=== PATIENT | male | born 1950 | race African-American/Black ===

== ENCOUNTER 2021-01-03 09:13 | Inpatient (IN) | payer MEDICARE, MEDICAID ==
[2021-01-04 06:21] LABS: Band 5 % (5-11); Hemoglobin 13.2 g/dL (14.0-18.0); Lymphocytes 10 % (21-51); MDiff Complete? YES; Mean Corpuscular HGB CONC 31.5 g/dL (32.0-36.0); Mean Corpuscular Hemoglobin 31.2 pg (27.0-31.0); Mean Corpuscular Volume 98.8 fL (78.0-98.0); Mean Platelet Volume 6.5 fL (7.4-10.4); Monocytes 8 % (0-10); Neutrophil 71 % (42-75); Platelet Count 396 thou/uL (130-400); Platelet Morphology Comment Appears Adequate; RBC Distribution Width 12.6 % (11.5-14.5); RBC Morphology Normal; Reactive Lymphocytes 6 % (0-10); Red Blood Cell (RBC) Count 4.24 mill/uL (4.70-6.10); White Blood Cell (WBC) Count 12.3 thou/uL (4.8-10.8)
[2021-01-04 06:25] LABS: Anion Gap 15 mmol/L (10-20); BUN (Urea Nitrogen) 58 mg/dL (8.4-25.7); Calc. Creatinine Clearance 48 mL/min (70-130); Calcium 8.7 mg/dL (7.8-10.44); Carbon Dioxide 23 mmol/L (23-31); Chloride 105 mmol/L (98-107); Glucose 140 mg/dL (83-110); Potassium 4.8 mmol/L (3.5-5.1); Sodium 138 mmol/L (136-145)
[2021-01-04] MEDS: predniSONE 20 MG TAB PO SCH (08:35)
[2021-01-04] MEDS: Amlodipine 5 MG TAB PO SCH (08:35)
[2021-01-04] MEDS: Aspirin 81 mg Enteric Coated Tablet PO SCH (08:35)
[2021-01-04] MEDS ORDERED: Senokot S 8.6-50 MG TAB PO PRN ×2 (09:39)
[2021-01-04] MEDS ORDERED: Eucerin (Mineral Oil/Petrolatum,White) 30 gm Jar TOP PRN (09:39)
[2021-01-04] MEDS ORDERED: Ondansetron ODT 4 MG TAB PO PRN (09:39)
[2021-01-04] MEDS ORDERED: Acetaminophen 325 MG TAB PO PRN (09:39)
[2021-01-04] MEDS ORDERED: Loperamide HCl 2 MG CAP PO PRN (09:39)
[2021-01-04] MEDS ORDERED: Bisacodyl 10 MG SUPP PR PRN ×2 (09:39)
[2021-01-04] MEDS ORDERED: Cepastat Lozenges 1 LOZ PO PRN (09:39)
[2021-01-04] MEDS ORDERED: Sodium Chloride 0.65% Nasal 44 ML BOT EA NARE PRN (09:39)
[2021-01-04] MEDS ORDERED: cloNIDine 0.1 MG TAB PO PRN (09:39)
[2021-01-04] MEDS ORDERED: Calcium Carbonate 500 MG ChewTAB PO PRN (09:39)
[2021-01-04] MEDS ORDERED: Bisacodyl 5 MG TAB PO PRN (09:39)
[2021-01-04] MEDS ORDERED: Artificial Tear Sol 15 ML BOT EA EYE PRN (09:39)
[2021-01-04] MEDS ORDERED: diphenhydrAMINE 25 MG CAP PO PRN (09:39)
[2021-01-04] MEDS: Famotidine 20 MG TAB PO SCH (21:02)
[2021-01-05 06:00] LABS: Anion Gap 12 mmol/L (10-20); BUN (Urea Nitrogen) 45 mg/dL (8.4-25.7); Calc. Creatinine Clearance 58 mL/min (70-130); Calcium 8.8 mg/dL (7.8-10.44); Carbon Dioxide 24 mmol/L (23-31); Chloride 107 mmol/L (98-107); Glucose 107 mg/dL (83-110); Potassium 4.8 mmol/L (3.5-5.1); Sodium 138 mmol/L (136-145)
[2021-01-05 06:22] LABS: Band 6 % (5-11); Hemoglobin 11.8 g/dL (14.0-18.0); Lymphocytes 10 % (21-51); MDiff Complete? YES; Mean Corpuscular HGB CONC 31.2 g/dL (32.0-36.0); Mean Corpuscular Hemoglobin 30.5 pg (27.0-31.0); Mean Corpuscular Volume 97.8 fL (78.0-98.0); Mean Platelet Volume 6.4 fL (7.4-10.4); Metamyelocyte 1 % (0-0); Monocytes 4 % (0-10); Neutrophil 79 % (42-75); Platelet Count 343 thou/uL (130-400); Platelet Morphology Comment Appears Adequate; RBC Distribution Width 12.4 % (11.5-14.5); RBC Morphology Normal; Red Blood Cell (RBC) Count 3.86 mill/uL (4.70-6.10); White Blood Cell (WBC) Count 12.1 thou/uL (4.8-10.8)
[2021-01-05] MEDS: Enoxaparin Sodium 40 MG/0.4 ML SYRINGE SC SCH (08:49)
[2021-01-05] MEDS: Famotidine 20 MG TAB PO SCH ×2 (08:49→20:50)
[2021-01-05] MEDS: predniSONE 20 MG TAB PO SCH (08:49)
[2021-01-05] MEDS: Aspirin 81 mg Enteric Coated Tablet PO SCH (08:49)
[2021-01-05] MEDS: Amlodipine 5 MG TAB PO SCH (08:49)
[2021-01-06] MEDS: predniSONE 20 MG TAB PO SCH (08:19)
[2021-01-06] MEDS: Amlodipine 5 MG TAB PO SCH (08:19)
[2021-01-06] MEDS: Famotidine 20 MG TAB PO SCH ×2 (08:20→20:17)
[2021-01-06] MEDS: Aspirin 81 mg Enteric Coated Tablet PO SCH (08:20)
[2021-01-06] MEDS: Enoxaparin Sodium 40 MG/0.4 ML SYRINGE SC SCH (08:22)
[2021-01-07] MEDS: Enoxaparin Sodium 40 MG/0.4 ML SYRINGE SC SCH (08:54)
[2021-01-07] MEDS: Famotidine 20 MG TAB PO SCH ×2 (08:54→21:09)
[2021-01-07] MEDS: Amlodipine 5 MG TAB PO SCH (08:54)
[2021-01-07] MEDS: Aspirin 81 mg Enteric Coated Tablet PO SCH (08:55)
[2021-01-07] MEDS: predniSONE 20 MG TAB PO SCH (08:55)
[2021-01-07] MEDS ORDERED: Ondansetron ODT 4 MG TAB SL PRN (11:15)
[2021-01-08] MEDS: predniSONE 20 MG TAB PO SCH (08:47)
[2021-01-08] MEDS: Amlodipine 5 MG TAB PO SCH (08:48)
[2021-01-08] MEDS: Famotidine 20 MG TAB PO SCH ×2 (08:49→20:41)
[2021-01-08] MEDS: Aspirin 81 mg Enteric Coated Tablet PO SCH (08:49)
[2021-01-08] MEDS: Enoxaparin Sodium 40 MG/0.4 ML SYRINGE SC SCH (08:49)
[2021-01-09] MEDS: Famotidine 20 MG TAB PO SCH ×2 (08:18→20:35)
[2021-01-09] MEDS: Aspirin 81 mg Enteric Coated Tablet PO SCH (08:18)
[2021-01-09] MEDS: Amlodipine 5 MG TAB PO SCH (08:18)
[2021-01-09] MEDS: Enoxaparin Sodium 40 MG/0.4 ML SYRINGE SC SCH (08:18)
[2021-01-09] MEDS: predniSONE 20 MG TAB PO SCH (08:18)
[2021-01-10 06:25] LABS: #Basophils 0.1 thou/uL (0.0-0.2); #Lymphocytes 1.8 thou/uL (1.20-3.40); #Monocytes 0.6 thou/uL (0.11-0.59); #Neutrophils 7.4 thou/uL (1.40-6.50); %Basophils 1.5 % (0.0-1.0); %Eosinophils 0.1 % (0.0-10.0); %Lymphocytes 18.5 % (21.0-51.0); %Monocytes 5.8 % (0.0-10.0); %Neutrophils 74.1 % (42.0-75.0); Mean Corpuscular Hemoglobin 30.8 pg (27.0-31.0); Mean Corpuscular Volume 99.5 fL (78.0-98.0); Mean Platelet Volume 6.9 fL (7.4-10.4); Platelet Count 229 thou/uL (130-400); RBC Distribution Width 13.3 % (11.5-14.5); Red Blood Cell (RBC) Count 3.55 mill/uL (4.70-6.10); White Blood Cell (WBC) Count 9.9 thou/uL (4.8-10.8)
[2021-01-10] MEDS: predniSONE 20 MG TAB PO SCH (08:40)
[2021-01-10] MEDS: Amlodipine 5 MG TAB PO SCH (08:40)
[2021-01-10] MEDS: Aspirin 81 mg Enteric Coated Tablet PO SCH (08:40)
[2021-01-10] MEDS: Famotidine 20 MG TAB PO SCH ×2 (08:40→21:05)
[2021-01-10] MEDS: Enoxaparin Sodium 40 MG/0.4 ML SYRINGE SC SCH (08:40)
[2021-01-11] MEDS: predniSONE 20 MG TAB PO SCH (08:21)
[2021-01-11] MEDS: Aspirin 81 mg Enteric Coated Tablet PO SCH (08:21)
[2021-01-11] MEDS: Amlodipine 5 MG TAB PO SCH (08:21)
[2021-01-11] MEDS: Famotidine 20 MG TAB PO SCH ×2 (08:21→20:27)
[2021-01-11] MEDS: Enoxaparin Sodium 40 MG/0.4 ML SYRINGE SC SCH (08:22)
[2021-01-12 05:41] VITALS: BMI 23.2
[2021-01-12] MEDS: predniSONE 20 MG TAB PO SCH (08:41)
[2021-01-12] MEDS: Famotidine 20 MG TAB PO SCH ×2 (08:42→20:39)
[2021-01-12] MEDS: Amlodipine 5 MG TAB PO SCH (08:42)
[2021-01-12] MEDS: Enoxaparin Sodium 40 MG/0.4 ML SYRINGE SC SCH (08:42)
[2021-01-12] MEDS: Aspirin 81 mg Enteric Coated Tablet PO SCH (08:42)
[2021-01-13] MEDS: predniSONE 20 MG TAB PO SCH (08:43)
[2021-01-13] MEDS: Enoxaparin Sodium 40 MG/0.4 ML SYRINGE SC SCH (08:43)
[2021-01-13] MEDS: Amlodipine 5 MG TAB PO SCH (08:44)
[2021-01-13] MEDS: Aspirin 81 mg Enteric Coated Tablet PO SCH (08:46)
[2021-01-13] MEDS: Famotidine 20 MG TAB PO SCH ×2 (08:46→21:19)
[2021-01-14] MEDS: Aspirin 81 mg Enteric Coated Tablet PO SCH (08:22)
[2021-01-14] MEDS: Amlodipine 5 MG TAB PO SCH (08:22)
[2021-01-14] MEDS: Enoxaparin Sodium 40 MG/0.4 ML SYRINGE SC SCH (08:22)
[2021-01-14] MEDS: Famotidine 20 MG TAB PO SCH ×2 (08:23→20:18)
[2021-01-14] MEDS: predniSONE 20 MG TAB PO SCH (08:23)
[2021-01-15] MEDS: predniSONE 20 MG TAB PO SCH (08:02)
[2021-01-15] MEDS: Enoxaparin Sodium 40 MG/0.4 ML SYRINGE SC SCH (08:03)
[2021-01-15] MEDS: Amlodipine 5 MG TAB PO SCH (08:03)
[2021-01-15] MEDS: Famotidine 20 MG TAB PO SCH ×2 (08:03→20:11)
[2021-01-15] MEDS: Aspirin 81 mg Enteric Coated Tablet PO SCH (08:03)
[2021-01-16] MEDS: Enoxaparin Sodium 40 MG/0.4 ML SYRINGE SC SCH (08:33)
[2021-01-16] MEDS: Amlodipine 5 MG TAB PO SCH (08:33)
[2021-01-16] MEDS: Famotidine 20 MG TAB PO SCH ×2 (08:33→20:20)
[2021-01-16] MEDS: predniSONE 5 MG TAB PO SCH (08:33)
[2021-01-16] MEDS: Aspirin 81 mg Enteric Coated Tablet PO SCH (08:33)
[2021-01-17] MEDS: Enoxaparin Sodium 40 MG/0.4 ML SYRINGE SC SCH (07:57)
[2021-01-17] MEDS: Amlodipine 5 MG TAB PO SCH (07:57)
[2021-01-17] MEDS: Famotidine 20 MG TAB PO SCH (07:57)
[2021-01-17] MEDS: Aspirin 81 mg Enteric Coated Tablet PO SCH (07:57)
[2021-01-17] MEDS: predniSONE 5 MG TAB PO SCH (07:57)
[2021-01-17 08:40] VITALS: BP 131/70; TEMP 97.4
== END 2021-01-17 13:37 | disposition home health service (06) | DRG 948 ==
LOC: NAV ACUTE 16:17
PROVIDERS: ADMIT Family Medicine; ATTEND Family Medicine
DX: R53.81 Other malaise (principal); I10 Essential (primary) hypertension; F10.10 Alcohol abuse, uncomplicated; M19.90 Unspecified osteoarthritis, unspecified site; M10.9 Gout, unspecified; D72.829 Elevated white blood cell count, unspecified; T38.0X5A Adverse effect of glucocorticoids and synthetic analogues, initial encounter; D64.9 Anemia, unspecified; Z86.16 Personal history of COVID-19; Z98.890 Other specified postprocedural states; Z87.891 Personal history of nicotine dependence; Z79.82 Long term (current) use of aspirin
CPT/HCPCS: 36415; 71046; 80048; 85025; J1650; J7512